=== PATIENT | male | born 1985 | race Two or more races ===

== ENCOUNTER 2018-09-13 19:39 | Emergency (ER) | payer BC ==
[~2018-09-13] VITALS: Ht 170.2 cm; Wt 74.8 kg
[2018-09-13 20:13] LABS: Basophils # (auto) 0 uL; Basophils % (auto) 0.4 % (0.0-2.0); Eosinophils # (auto) 0.1 uL; Red Cell Distribution Width 13.2 % (11.8-14.3)
[2018-09-13 20:15] LABS: Eosinophils % (auto) 1.2 % (0.0-7.0); Hematocrit 50.3 % (41.0-53.0); Hemoglobin 17.6 g/dL (13.5-17.5); Lymphocytes # (auto) 2.4 uL; Lymphocytes % (auto) 34.7 % (10.0-50.0); Mean Corpuscular Hgb Conc. 34.9 g/dL (32.0-36.0); Mean Corpuscular Volume 88.9 fL (80.0-100.0); Monocytes # (auto) 0.8 uL; Neutrophils # (auto) 3.6 uL; Neutrophils % (auto) 52.7 % (37.0-80.0); Nucleated Red Blood Cells % 0.4 %; Platelet Count (auto) 222 10^3/uL (140-450); Red Blood Cells 5.66 10^6/uL (4.5-5.90); White Blood Cell 6.8 10^3/uL (4.4-10.8)
[2018-09-13 20:29] LABS: Anion Gap 5 (5-15); BUN/Creatinine Ratio 13.7; Blood Urea Nitrogen 14 mg/dL (7-18); Carbon Dioxide 29 mmol/L (21-32); Chloride 102 mmol/L (98-107); GFR African American 110 mL/min; Glucose 89 mg/dL (74-106); Potassium 3.5 mmol/L (3.5-5.1); Sodium 136 mmol/L (136-145)
[2018-09-13 20:30] LABS: Alanine Aminotransferase 23 U/L (16-61); Albumin 4.3 g/dL (3.4-5.0); Aspartate Aminotransferase 12 U/L (15-37); Calcium 8.9 mg/dL (8.5-10.1); GFR Non-African American 91 mL/min
[2018-09-13 20:35] LABS: Alkaline Phosphatase 59 U/L (45-117); Bilirubin, Total 0.4 mg/dL (0.2-1.0); Total Protein 7.7 g/dL (6.4-8.2)
[2018-09-13 23:47] LABS: Urine Bacteria NONE SEEN /hpf (None Seen); Urine Blood Negative /uL (Negative); Urine Mucus FEW (None Seen); Urine Specific Gravity 1.023 (1.001-1.035); Urine WBC 1 /hpf (0 - 3)
[2018-09-14 00:40] VITALS: BP 134/97
== END 2018-09-14 02:31 | disposition left against medical advice (07) ==
LOC: ER 19:39
DX: R07.89 Other chest pain (principal); R51 Headache; Z53.29 Procedure and treatment not carried out because of patient's decision for other reasons
CPT/HCPCS: 36415; 71045; 80053; 81001; 84484; 85025; 93005